=== PATIENT | male | born 1980 | race Hispanic/Latino ===

== ENCOUNTER 2018-07-08 12:27 | Emergency (ER) | payer OTHER ==
[~2018-07-08] VITALS: Ht 177.8 cm; Wt 104.3 kg
--- OUTSIDE RECORDS SUMMARY | 2018-07-08 12:30 | XMS REPORT | Continuity of Care Document ---
Author Author [facility] Interface Address Unknown Phone Unavailable Problems Problem Status Onset Date Classification Date Reported Comments Source Medications Medication Details Route Status Patient Instructions Ordering Provider Order Date Source Allergies, Adverse Reactions, Alerts Substance Category Reaction Severity Reaction type Status Date Reported Comments Source Immunizations Immunization Date Given Site Status Last Updated Comments Source Results Order Name Results Value Reference Range Date Interpretation Comments Source Vital Signs Vital Sign Value Date Comments Source Encounters Location Location Details Encounter Type Encounter Number Reason For Visit Attending Provider ADM Date DC Date Status Source Outpatient [id number] BONILLA LAZO 06/15/2018 Active [facility] Eric Procedures Procedure Code Date Perfomer Comments Source
--- NOTE | 2018-07-08 13:19 | Diagnostic Imaging Report ---
Examination: Single AP view of the chest with upright abdominal radiograph. COMPARISON: None. INDICATION: Abdominal pain DISCUSSION: Chest: The lungs are well-inflated. No focal consolidation, pleural effusion, or pneumothorax. Cardiomediastinal contour and pulmonary vasculature are within normal limits. Abdomen: The bowel gas pattern shows no dilated, air-filled loops of bowel. No abnormal abdominal calcification, mass effect, or organomegaly. No air-fluid levels or pneumoperitoneum the upright radiograph. Regional skeletal structures are intact. IMPRESSION: No acute cardiopulmonary abnormality. Nonobstructive bowel gas pattern. Signed by: Dr. Nicholas Che M.D. on 07/08/2018 1:16 PM
[2018-07-08 13:24] LABS: BASOPHILS % 0.2 % (0.0-1.0); EOSINOPHILS # (AUTO) 0.1 (0.0-0.4); EOSINOPHILS % 1.2 % (0.0-6.0); HEMATOCRIT 41.3 % (38.2-49.6); HEMOGLOBIN 14.4 g/dL (14.0-18.0); LYMPHOCYTES # (AUTO) 1.5 (1.0-3.2); LYMPHOCYTES % 26.8 % (18.0-39.1); MEAN CORPUSCULAR HGB CONC 34.9 g/dL (31-35); MEAN CORPUSCULAR VOLUME 88.8 fL (81-99); MONOCYTES # (AUTO) 0.5 (0.2-0.8); MONOCYTES % 8.9 % (4.4-11.3); NEUTROPHILS # (AUTO) 3.6 (2.1-6.9); NEUTROPHILS % 62.4 % (38.7-80.0); PLATELET COUNT 277 x10e3/uL (140-360); RED BLOOD COUNT 4.65 x10e6/uL (4.3-5.7); RED CELL DISTRIBUTION WIDTH 11.9 % (11.7-14.4)
[2018-07-08 13:46] LABS: ALANINE AMINOTRANSFERASE 20 IU/L (0-55); ALBUMIN/GLOBULIN RATIO 1.3 (0.8-2.0); ALKALINE PHOSPHATASE 49 IU/L (40-150); ANION GAP 12.1 mmol/L (8-16); BLOOD UREA NITROGEN 12 mg/dL (7-26); BUN/CREATININE RATIO 13 (6-25); CALCIUM 9.2 mg/dL (8.4-10.2); CARBON DIOXIDE 25 mmol/L (22-29); CHLORIDE 108 mmol/L (98-107); CREATININE, SERUM 0.94 mg/dL (0.72-1.25); EST GLOMERULAR FILTRATION RATE > 60 ML/MIN (60-); GLUCOSE 97 mg/dL (74-118); LIPASE 37 U/L (8-78); POTASSIUM 4.1 mmol/L (3.5-5.1); SODIUM 141 mmol/L (136-145)
--- NOTE | 2018-07-08 14:26 | Diagnostic Imaging Report ---
EXAM: US GALLBLADDER DATE: 07/08/2018 12:00 AM Time stamp on exam: 1326 INDICATION: Right upper quadrant pain, concern for acute cholecystitis COMPARISON: None TECHNIQUE: Transverse and longitudinal avila scale and color doppler sonographic images of the upper abdomen were obtained. FINDINGS: LIVER 14.2 cm in the right midclavicular line. Normal echogenicity, normal contour, no masses. GALLBLADDER No stones, sludge, wall-thickening or pericholecystic fluid. Negative sonographic Arzola's sign. BILE DUCTS No intra nor extra-hepatic biliary dilation. Common bile duct measures 0.3 cm PANCREAS: Poorly visualized secondary to overlying bowel gas. RIGHT KIDNEY: 10.1 cm Echogenicity: Normal Collecting System: No hydronephrosis Stones: None Cyst/Mass: None VESSELS: Aorta: Visualized portions are within normal size limits Inferior Vena Cava: Visualized portions are normal Main Portal Vein: 0.7 cm, normal size with hepatopetal flow. FREE FLUID: None IMPRESSION: Unremarkable right upper quadrant ultrasound. No sonographic findings of cholelithiasis or acute cholecystitis. Signed by: Dr. Nicholas Che M.D. on 07/08/2018 2:22 PM
[2018-07-08] MEDS ORDERED: KETOROLAC TROMETHAMINE 30 MG/ML VIAL IV STA (15:03)
[2018-07-08] MEDS ORDERED: DICYCLOMINE HCL 20 MG/2 ML VIAL IM ONE (15:15)
[2018-07-08 15:56] VITALS: BP 100/56
[2018-07-10] MEDS ORDERED: BENTYL10 MG/1 ML PO (13:21)
[2018-07-13] MEDS ORDERED: PEPCID20 MG (11:01)
== END 2018-07-08 15:58 | disposition home or self-care (01) ==
LOC: ER 12:27
DX: R10.11 Right upper quadrant pain (principal); K80.50 Calculus of bile duct without cholangitis or cholecystitis without obstruction
CPT/HCPCS: 36415; 74022; 76705; 80053; 83690; 84484; 85025; 99284; J0500; J1885

== ENCOUNTER → 2018-07-13 | Day surgery (SDC) | payer OTHER ==
[~2018-07-13] MED LIST: BENTYL10 MG/1 ML PO; FENTANYL CITRATE/PF 100MCG/2 ML INJ ONE; LIDOCAINE HCL 2% LOCAL INJ 5 ML SDV VIAL INJ ONE; MIDAZOLAM HCL 2 MG/2 ML VIAL ONE; PEPCID20 MG; PROPOFOL IV EMULSION 10 MG/ML 50 ML VIAL ONE
--- NOTE | 2018-07-13 18:23 | Operative Report ---
DATE OF PROCEDURE: July 13, 2018 REFERRING PHYSICIAN: Dr. Ellis Callejas. PROCEDURE PERFORMED: Esophagogastroduodenoscopy with biopsies. INDICATIONS FOR PROCEDURE: Upper abdominal pain. MEDICATION: Patient was done under MAC, please see anesthesiologist's note. PROCEDURE: With patient in left lateral decubitus position, the flexible fiberoptic Olympus gastroscope was introduced into the esophagus under direct visualization without any difficulty. There was some patchy erythema noted in distal esophagus. Minute tongues of velvety red mucosa were noted to extend proximally from the GE junction. Biopsies were obtained to rule out Varghese's. The scope was then advanced with ease into the stomach, traversing a small sliding hiatal hernia. Mucosa overlying the antrum and the body revealed some patchy erythema and [id number] edema and biopsies were obtained and sent to stain for H. pylori. Pylorus appeared to be of normal contour and shape, was intubated with ease and the scope was advanced all the way to the 2nd portion of the duodenum. Biopsies were obtained from the proximal 2nd portion to rule out sprue as well as from the duodenal bulb. The scope was then withdrawn back into the stomach and retroflexed, and mucosa overlying the fundus and the cardia appeared to be within normal limits. The scope was then straightened out and was subsequently withdrawn. Patient tolerated the procedure well. IMPRESSION 1. Distal esophagitis, mild. 2. Rule out Varghese's esophagus. 3. Small sliding hiatal hernia. 4. Gastritis, biopsied, biopsies sent to stain for Helicobacter pylori. PLAN: Follow up histology. Initiate Protonix 40 mg 1 p.o. q.a.m.a.c. Job#: [id number] AKU cc:ELLIS CALLEJAS MD
--- OUTSIDE RECORDS SUMMARY | 2018-07-16 12:21 | XMS REPORT ---
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 Allergies, Adverse Reactions, Alerts This patient has no known allergies or adverse reactions. Medications This patient has no known medications. Results Test Description Test Time Test Comments Text Results Atomic Results Result Comments US GALLBLADDER 2018-07-08 14:21:00 [place] [address] Patient Name: JONATHAN GARCIA MR #: [id number] : 1980 Age/Sex: 37/M Req #: [id number] Adm Physician: Ordered by: ANGELA MIR MD Report #: [id number] Location: ER Room/Bed: Procedure: [id number] US/US GALLBLADDER Exam Date: 07/08/18 Exam Time: 1326 REPORT STATUS: Signed EXAM: US GALLBLADDER DATE: 07/08/2018 12:00 AM Time stamp on exam: 1326 INDICATION: Right upper quadrant pain, concern for acute cholecystitis COMPARISON: None TECHNIQUE: Transverse and longitudinal avila scale and color doppler sonographic images of the upper abdomen were obtained. FINDINGS: LIVER 14.2 cm in the right midclavicular line. Normal echogenicity, normal contour, no masses. GALLBLADDER No stones, sludge, wall-thickening or pericholecystic fluid. Negative sonographic Arzola's sign. BILE DUCTS No intra nor extra-hepatic biliary dilation. Common bile duct measures 0.3 cm PANCREAS: Poorly visualized secondary to overlying bowel gas. RIGHT KIDNEY: 10.1 cm Echogenicity: Normal Collecting System: No hydronephrosis Stones: None Cyst/Mass: None VESSELS: Aorta: Visualized portions are within normal size limits Inferior Vena Cava: Visualized portions are normal Main Portal Vein: 0.7 cm, normal size with hepatopetal flow. FREE FLUID: None IMPRESSION: Unremar kable right upper quadrant ultrasound. No sonographic findings of cholelithiasis or acute cholecystitis. Signed by: Dr. Isidra Kunz M.D. on 07/08/2018 2:22 PM Dictated By: ISIDRA KUNZ MD 142 Transcribed By: GREGOR on 07/08/18 142 COPY TO: ANGELA MIR MD ABDOMEN ACUTE SERIES W/PA CXR 2018-07-08 13:14:00 [place] [address] Patient Name: JONATHAN GARCIA MR #: [id number] : 1980 Age/Sex: 37/M Req #: [id number] Adm Physician: Ordered by: ANGELA MIR MD Report #: [id number] Location: ER Room/Bed: Procedure: [id number] DX/ABDOMEN ACUTE SERIES W/PA CXR Exam Date: 07/08/18 Exam Time: 1249 REPORT STATUS: Signed Examination: Single AP view of the chest with upright abdominal radiograph. COMPARISON: None. INDICATION: Abdominal pain DISCUSSION: Chest: The lungs are well-inflated. No focal consolidation, pleural effusion, or pneumothorax. Cardiomediastinal contour and pulmonary vasculature are within normal limits. Abdomen: The bowel gas pattern shows no dilated, air-filled loops of bowel. No abnormal abdominal calcification, mass effect, or organomegaly. No air-fluid levels or pneumoperitoneum the upright radiograph. Regional skeletal structures are intact. IMPRESSION: No acute cardiopulmonary abnormality. Nonobstructive bowel gas pattern. Signed by: Dr. Isidra Kunz M.D. on 07/08/2018 1:16 PM Dictated By: ISIDRA KUNZ MD 1316 Transcribed By: GREGOR on 07/08/18 1316 COPY TO: ANGELA MIR MD
== END | disposition home or self-care (01) ==
LOC: OR 10:30
PROVIDERS: ATTEND Internal Medicine Gastroenterology
DX: K29.50 Unspecified chronic gastritis without bleeding (principal); B96.81 Helicobacter pylori [H. pylori] as the cause of diseases classified elsewhere; K21.0 Gastro-esophageal reflux disease with esophagitis; K44.9 Diaphragmatic hernia without obstruction or gangrene; K64.8 Other hemorrhoids; R03.0 Elevated blood-pressure reading, without diagnosis of hypertension; Z68.33 Body mass index [BMI] 33.0-33.9, adult
CPT/HCPCS: 43239; J2001; J2250; J2704

== ENCOUNTER → 2018-09-13 | Outpatient (CLI) | payer BC ==
[~2018-09-13] MED LIST changes: -FENTANYL CITRATE/PF 100MCG/2 ML INJ ONE; -LIDOCAINE HCL 2% LOCAL INJ 5 ML SDV VIAL INJ ONE; -MIDAZOLAM HCL 2 MG/2 ML VIAL ONE; -PROPOFOL IV EMULSION 10 MG/ML 50 ML VIAL ONE
--- NOTE | 2018-09-13 15:54 | Diagnostic Imaging Report ---
Hepatobiliary Scan with Gallbladder Ejection Fraction Clinical information: RUQ abdominal pain Technique: Following intravenous administration of 6.6 millicuries of Tc-99m mebrofenin, dynamic images of the abdomen in the anterior projection were obtained through 43 minutes. Sincalide (CCK analog) 2.1 micrograms was administered intravenously over 30 minutes with additional imaging for determination of gallbladder ejection fraction. Discussion: Perfusion of the liver is normal. Extraction of tracer by the liver parenchyma is normal. Tracer appears promptly within the biliary tract. The gallbladder begins to fill by 30 minutes post injection of tracer and fills adequately. Tracer is seen in the small bowel by 23 minutes. The gallbladder ejection fraction with sincalide is 19% (normal greater than 40%). Impression: 1. Filling of the gallbladder excludes acute cystic duct obstruction/acute cholecystitis. 2. The decreased gallbladder ejection fraction of 19% supports the clinical diagnosis of chronic cholecystitis/gallbladder dyskinesia. Signed by: Dr. Pooja Henry M.D. on 09/13/2018 3:51 PM
== END ==
LOC: NM 11:10
PROVIDERS: ATTEND Internal Medicine Gastroenterology
DX: R10.9 Unspecified abdominal pain (principal)
CPT/HCPCS: 78227; A9537

== ENCOUNTER → 2018-11-01 | Day surgery (SDC) | payer BC ==
[2018-10-28 10:46] LABS: BASOPHILS % 0.4 % (0.0-1.0); EOSINOPHILS # (AUTO) 0.1 (0.0-0.4); EOSINOPHILS % 1.6 % (0.0-6.0); HEMATOCRIT 40.1 % (38.2-49.6); LYMPHOCYTES # (AUTO) 1.7 (1.0-3.2); LYMPHOCYTES % 32.7 % (18.0-39.1); MEAN CORPUSCULAR HEMOGLOBIN 31.3 pg (28-32); MEAN CORPUSCULAR HGB CONC 34.9 g/dL (31-35); MEAN CORPUSCULAR VOLUME 89.5 fL (81-99); MONOCYTES # (AUTO) 0.5 (0.2-0.8); MONOCYTES % 9.3 % (4.4-11.3); NEUTROPHILS # (AUTO) 2.8 (2.1-6.9); NEUTROPHILS % 55.4 % (38.7-80.0); PLATELET COUNT 270 x10e3/uL (140-360); RED BLOOD COUNT 4.48 x10e6/uL (4.3-5.7); RED CELL DISTRIBUTION WIDTH 12.9 % (11.7-14.4)
[2018-10-28 10:56] LABS: BILIRUBIN,URINE NEGATIVE (NEGATIVE); CLARITY,URINE SL CLOUDY (CLEAR); COLOR,URINE YELLOW (YELLOW); KETONES,URINE NEGATIVE (NEGATIVE); LEUKOCYTE ESTERASE ,URINE NEGATIVE (NEGATIVE); NITRITE,URINE NEGATIVE (NEGATIVE); PROTEIN,URINE DIPSTICK NEGATIVE (NEGATIVE); URINE UROBILINOGEN 0.2 mg/dL (0.2 - 1)
[2018-10-28 11:08] LABS: ALANINE AMINOTRANSFERASE 25 IU/L (0-55); ALBUMIN 3.8 g/dL (3.5-5.0); ALBUMIN/GLOBULIN RATIO 1.2 (0.8-2.0); ALKALINE PHOSPHATASE 49 IU/L (40-150); ANION GAP 11.4 mmol/L (8-16); BLOOD UREA NITROGEN 12 mg/dL (7-26); BUN/CREATININE RATIO 13 (6-25); CALCIUM 9.4 mg/dL (8.4-10.2); CARBON DIOXIDE 24 mmol/L (22-29); CHLORIDE 103 mmol/L (98-107); CREATININE, SERUM 0.93 mg/dL (0.72-1.25); EST GLOMERULAR FILTRATION RATE > 60 ML/MIN (60-); GLUCOSE 102 mg/dL (74-118); POTASSIUM 4.4 mmol/L (3.5-5.1); SODIUM 134 mmol/L (136-145)
[~2018-11-01] MED LIST changes: +ACETAMINOPHEN 1000 MG/100 ML IV ONE; +BUPIVACAINE 0.25%/EPI 30ML SDV INJ ONE; +DEXAMETHASONE SOD PHOS INJ 4 MG/ML VIAL ONE; +FENTANYL CITRATE/PF 100MCG/2 ML INJ ONE; +GLYCOPYRROLATE INJ 1MG/ 5 ML SYR ONE; +HYDROCODONE/APAP 7.5MG-325MG 1 EA TAB ONE; +LIDOCAINE HCL 2% LOCAL INJ 5 ML SDV VIAL INJ ONE; +MIDAZOLAM HCL 2 MG/2 ML VIAL ONE; +NEOSTIGMINE 5 MG/5ML SYR ONE; +ONDANSETRON HCL INJ 2MG/ML 2ML 2 MG/ML VIAL ONE; +PROPOFOL IV EMULSION 10 MG/ML 20 ML VIAL ONE; +ROCURONIUM BROMIDE 10 MG/ML 5ML VIAL ONE; +SEVOFLURANE INHAL SOLN 250 ML PEN BTL ONE
[2018-11-01 12:30] VITALS: BP 117/72
--- NOTE | 2018-11-02 13:14 | Operative Report ---
DATE OF PROCEDURE: 11/01/2018 SURGEON: Bear Shepherd MD PREOPERATIVE DIAGNOSIS: Biliary dyskinesia. POSTOPERATIVE DIAGNOSIS: Biliary dyskinesia. OPERATION PERFORMED: Laparoscopic cholecystectomy. PATIENT FINANCIAL ADVOCATE: WILL Bergman. ANESTHESIA: General. COMPLICATIONS: None. ESTIMATED BLOOD LOSS: Minimal. DESCRIPTION OF PROCEDURE: With the patient lying in bed in the supine position under good general endotracheal anesthesia, the abdomen was prepped with Betadine solution and draped in the usual manner. A Veress needle was introduced into the umbilicus and pneumoperitoneum was established without any difficulty. An 11 mm trocar was placed into the umbilicus and a 10 mm videolaparoscope was placed into the intraabdominal cavity. Under direct vision, three 5 mm trocars were placed in the right subcostal region. Video laparoscopy revealed a distended gallbladder. No other abdominal abnormalities were identified. The peritoneum overlying the neck of the gallbladder was then opened up and the cystic duct was identified. The cystic duct was followed to its junction with the common duct. It was a rather long cystic duct present. The cystic duct was then circumferentially dissected away from the common duct, doubly clipped and divided. The cystic artery had an anterior and a posterior branch and both of these were individually clipped and divided. The gallbladder was then slowly and carefully taken off the liver bed using the cautery scissors and perfect hemostasis was ascertained. DICTATION ENDS HERE Bear Shepherd MD JLR/MODL /[id number]
== END | disposition home or self-care (01) ==
LOC: OR 06:58
PROVIDERS: ATTEND Surgery
DX: K81.1 Chronic cholecystitis (principal)
CPT/HCPCS: 36415; 47562; 80053; 81003; 85025; 88304; C1766; J0131; J1100; J2001; J2250; J2405; J2704; J3490